=== PATIENT | female | born 1980 | race Caucasian/White ===

== ENCOUNTER → 2019-05-14 | Outpatient (CLI) | payer OTHER ==
[2019-05-14 12:43] LABS: T4, Free (Free Thyroxine) 0.86 ng/dL (0.78-2.19)
--- NOTE | 2019-05-14 14:07 | MR ---
EXAMINATION TYPE: MR brain wo con DATE OF EXAM: 05/14/2019 COMPARISON: NONE HISTORY: Memory loss TECHNIQUE: Multiplanar, multisequence images of the brain and brainstem is performed without intravenous contras t. FINDINGS: Diffusion weighted images demonstrate no evidence of a recent infarct or other diffusion ab normality. There is no extra-axial fluid. There are few foci of T2/FLAIR hyperintensity within the d eep white matter. The largest is seen in the right frontal lobe measuring 3 x 2 mm. The ventricular s ystem and cisternal spaces are normal in size and appearance. The brain volume is age appropriate. Midline structures demonstrate normal morphology. The craniocervical junction appears within normal limits. The dural venous sinuses appear patent. The visualized sinuses are clear and the globes are i ntact. There is partial opacification of the left mastoid air cells. Right mastoid air cells are well aerated. IMPRESSION: 1. No acute infarct, midline shift or mass effect. 2. Few scattered foci of nonspecific white matter change. Given the distribution sequela of migraines would be favored versus less likely vasculitis or even less likely demyelinating disease. 3. Partial opacification of the left mastoid air cells. Correlate with point tenderness to exclude ma stoiditis.
== END | disposition home or self-care (01) ==
LOC: RADMRIMAIN 10:54
PROVIDERS: ATTEND Psychiatry & Neurology Neurology
DX: R90.89 Other abnormal findings on diagnostic imaging of central nervous system (principal); R41.3 Other amnesia
CPT/HCPCS: 36415; 70551; 82306; 82607; 84439; 84443

== ENCOUNTER → 2019-09-24 | Outpatient (CLI) | payer OTHER ==
--- NOTE | 2019-09-24 16:51 | CONS ---
CONSULTATION DATE OF SERVICE: 09/24/2019 This patient is a 39-year-old lady who has been evaluated [facility] for significant excessive daytime sleepiness. The patient has a history of sleepiness for many years. At present she is on treatment with Adderall for ADHD, and according to her, she is taking up to 90 mg of Adderall. She continues to feel sleepiness. Clayton Sleepiness Scale is 12. Her sleep schedule is from 12 midnight or 1 a.m. until 10 or 11 a.m. No problems with falling asleep. She can fall asleep anytime anywhere and she usually sleeps on the stomach position. According to her, she does not snore. She wakes up from sleep up to 2 times with nocturia, but not always. In the morning she wakes up tired, has difficulties paying attention, falling asleep during the day, has problems with memory and concentration. She takes up to 3 naps a day when she is able to. She has some history of hypnagogic hallucinations. No clear history of cataplexy. Clayton Sleepiness Scale is 12. PAST MEDICAL HISTORY: ADHD, asthma. PAST SURGICAL HISTORY: Bilateral lens replacement for cataracts, surgery with a laser on retina, . MEDICATIONS: Adderall. SOCIAL HISTORY: Positive for smoking up to 2 cigarettes a day for 10 years; trying to quit. Alcohol consumption occasional. Positive history of smoking marijuana. FAMILY HISTORY: Sleep apnea. PHYSICAL EXAMINATION: GENERAL: A pleasant lady without distress. VITAL SIGNS: BP is 115/56, HR 78, RR 16, height 5 feet 8 inches, weight 148, body mass index 22.5, temperature 98.2, oxygen saturation at room air 100%. HEENT: PERRLA, EOMI. Evaluation of oropharynx showed tongue protrudes midline. Short distance between soft palate and posterior pharyngeal wall. NECK: Supple. No JVD. Thyroid is not palpable. Neck measures 13-1/2 inches in circumference. LUNGS: Clear to percussion and to auscultation. Good air exchange. No wheezing or rhonchi. HEART: S1, S2 regular. No murmurs, gallops or rubs. ABDOMEN: Soft and nontender. Bowel sounds are present. No organomegaly. EXTREMITIES: No clubbing or cyanosis. SKYL[employer] ASSEMBLER: Awake, alert, and oriented X3. Cranial nerves 2 to 7 intact. There is no fasciculation or atrophy. noted. No focal deficits observed. IMPRESSION: 1. Significant excessive daytime sleepiness, even while the patient is on treatment with Adderall with high dose. Positive history of hypnagogic hallucinations. 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 2. Short distance between soft palate and posterior pharyngeal wall. Positive family history of obstructive sleep apnea. Differential diagnosis should include obstructive sleep apnea. 3. History of attention deficit hyperactivity disorder. 4. History of asthma. 5. Status post section. 6. Status post bilateral eye surgery for lens replacement. 7. Status post retinal laser surgery to prevent retinal detachment. PLAN: 1. Polysomnography for evaluation of patient's breathing during sleep with a following multiple sleep latency test for objective evaluation of patient's sleepiness. 2. CPAP/BiPAP titration if sleep study confirms obstructive sleep apnea-hypopnea syndrome. 3. Preferable position during sleep on the side. 4. No driving if patient feels any sleepiness. 5. I will see patient for follow-up visit to explain results of testing and following plan. Thank you very much for referring this patient for consultation. Sincerely, Indio Salazar MD, PhD, FAASM Diplomat [employer] [place] [employer] [place] [employer] Att[employer] [facility] [place] MMODL / IJN: [id number] /
== END | disposition home or self-care (01) ==
LOC: SLEEP 13:09
PROVIDERS: ATTEND Internal Medicine
DX: G47.33 Obstructive sleep apnea (adult) (pediatric) (principal); J45.909 Unspecified asthma, uncomplicated; F90.9 Attention-deficit hyperactivity disorder, unspecified type; Z98.890 Other specified postprocedural states
CPT/HCPCS: 99211

== ENCOUNTER 2020-02-01 19:34 | Emergency (ER) | payer OTHER ==
[2020-02-01 19:42] VITALS: RESP 18; TEMP 98.3
--- NOTE | 2020-02-01 19:55 | ED ---
Fall HPI - General Chief Complaint: Fall Stated Complaint: Fall Time Seen by Provider: 02/01/20 19:46 Source: patient, RN notes reviewed, old records reviewed Mode of arrival: ambulatory - History of Present Illness Initial Comments: This Patient is a pleasant 39-year-old female who presents emergency department today for evaluation with complaints of falling off the step stool and rolling on proximally 6 stairs when she was fell asleep accidentally sitting on the stool last night. She complains of swelling and pain in her left pinky. She also complains of head and neck pain. She denies loss of consciousness. She is not on blood thinners. Patient reports that she has history of excessive sleepiness and has been evaluated for narcolepsy. She reports that she's had no other injury including lower extremity pain or back pain or abdominal pain related to the fall. She denies chest pain or shortness of breath. - Related Data Allergies Allergy/AdvReac Type Severity Reaction Status Date / Time codeine Allergy Anaphylaxis Verified 02/01/20 19:42 Review of Systems ROS Statement: Those systems with pertinent positive or pertinent negative responses have been documented in the HPI. ROS Other: All systems not noted in ROS Statement are negative. Past Medical History Past Medical History: No Reported History History of Any Multi-Drug Resistant Organisms: None Reported Past Surgical History: No Surgical Hx Reported Past Psychological History: No Psychological Hx Reported Smoking Status: Former smoker Past Alcohol Use History: Occasional Past Drug Use History: Marijuana General Exam - General Exam Comments Initial Comments: Heart rate 39-year-old female. Pleasant. No significant distress. Limitations: no limitations General appearance: alert, in no apparent distress Head exam: Present: atraumatic Eye exam: Present: normal appearance, PERRL, EOMI. Absent: scleral icterus, conjunctival injection, periorbital swelling ENT exam: Present: normal exam, mucous membranes moist Neck exam: Present: normal inspection, other (cervical spine tenderness, placedin c collar'). Absent: tenderness, meningismus, lymphadenopathy Respiratory exam: Present: normal lung sounds bilaterally. Absent: respiratory distress, wheezes, rales, rhonchi, stridor Cardiovascular Exam: Present: regular rate, normal rhythm, normal heart sounds. Absent: systolic murmur, diastolic murmur, rubs, gallop, clicks GI/Abdominal exam: Present: soft, normal bowel sounds. Absent: distended, tenderness, guarding, rebound, rigid Extremities exam: Present: normal inspection, full ROM, normal capillary refill. Absent: tenderness, pedal edema, joint swelling, calf tenderness Left Elbow exam: Present: normal inspection, full ROM Forearm Wrist exam: Present: normal inspection, full ROM Hand Wrist exam: Present: full ROM, swelling (Patient has tenderness swelling over the left fifth digit. ). Absent: normal inspection Neuro motor exam: Present: wrist extension intact, thumb opposition intact, thumb IP flexion intact, thumb adduction intact, fingers 2-5 abduction intact Vascular: Present: normal capillary refill Back exam: Present: normal inspection Neurological exam: Present: alert, oriented X3, CN II-XII intact Psychiatric exam: Present: normal affect, normal mood Skin exam: Present: warm Course Vital Signs 02/01/20 19:38 Temperature 98.3 F Pulse Rate 118 H Respiratory 18 Rate Blood Pressure 103/69 O2 Sat by Pulse 100 Oximetry Medical Decision Making - Medical Decision Making Patient is a 39-year-old female presents to return today with complaints of head and neck pain after she fell off of the stool and rolled down proximal 6 stairs off of her porch. She reports that she fell asleep sitting on the stool. She has a history of sleeping disorder narcolepsy. Patient reports that she also i njured her pinky. She is placed in a c-collar upon arrival. Patient's does have some tenderness over the cervical spine. CAT scan was completed and shows no evidence of surgical cervical fracture. There is no evidence of intracranial hemorrhage or mass effect noted. X-ray of the hand shows evidence of an volar and dorsal avulsion fracture of her the left middle phalanx. She does have range of motion. No signs evidence of tendon disruption. Patient will be placed in a finger splint and chavez taped. Advised to follow-up with orthopedic if symptoms continue to persist or any decreased range of motion or function of finger. Discussed return parameters. - Radiology Data Radiology results: report reviewed Volar and dorsal avulsion fracture of the little finger middle phalanx. No acute fracture dislocation evident cervical spine. No acute intracranial hemorrhage versus mass effect or midline shift is seen. Disposition Clinical Impression: Finger fracture, Fall, Neck sprain, Minor head injury Disposition: HOME SELF-CARE Condition: Good Instructions (If sedation given, give patient instructions): Finger Fracture (ED) Additional Instructions: Patient should take Motrin Tylenol for pain. Patient should keep the finger in the splint and chavez tape. Following up with orthopedic. Return to ED if any alarming signs or symptoms occur. Is patient prescribed a controlled substance at d/c from ED?: No Referrals: Gwen Avila MD [Primary Care Provider] - 1-2 days Jarocho Landa DO [Doctor of Osteopathic Medicine] - 1-2 days Time of Disposition: 20:37
--- NOTE | 2020-02-01 20:21 | CT ---
EXAMINATION TYPE: CT brain cspine wo con DATE OF EXAM: 02/01/2020 COMPARISON: None available. HISTORY: Fall injury x1 day ago CT DLP: 1271.3 mGycm Automated exposure control for dose reduction was used. TECHNIQUE: CT scan of the head and cervical spine are performed without contrast. FINDINGS: There is no acute intracranial hemorrhage, mass effect, or midline shift identified. The ventricles and sulci are within normal limits in size. The globes are intact and the visualized sin uses are clear. Cervical spine is visualized in its entirety from C1 through upper thoracic levels and demonstrates s atisfactory alignment without evidence of acute fracture or dislocation. Prevertebral soft tissue ap pears within normal limits. The C1-C2 articulation is unremarkable. IMPRESSION: 1. There is no acute fracture or dislocation evident in the cervical spine. 2. No acute intracranial hemorrhage, mass effect, or midline shift is seen.
--- NOTE | 2020-02-01 20:24 | XR ---
Result: Clinical History: Left little finger pain status post fall. Comparison: None available. Technique: 3 views of the left hand. Findings: There are small volar and dorsal avulsion fractures of the little finger middle phalanx. There is ove rlying soft tissue edema. No evidence of dislocation. The joint spaces are otherwise preserved. Minimal ring finger is seen. Otherwise no radiopaque foreign body. Impression: Volar and dorsal avulsion fractures of the little finger middle phalanx.
[2020-02-01 21:00] VITALS: BP 124/78; PULSE 98
== END 2020-02-01 21:00 | disposition home or self-care (01) ==
LOC: EC 19:34
DX: S62.627A Displaced fracture of middle phalanx of left little finger, initial encounter for closed fracture (principal); S13.9XXA Sprain of joints and ligaments of unspecified parts of neck, initial encounter; S09.90XA Unspecified injury of head, initial encounter; Z88.5 Allergy status to narcotic agent; Z87.891 Personal history of nicotine dependence; W10.9XXA Fall (on) (from) unspecified stairs and steps, initial encounter; Y93.84 Activity, sleeping; Y92.89 Other specified places as the place of occurrence of the external cause
CPT/HCPCS: 70450; 72125; 99284